=== PATIENT | female | born 1945 | race African-American/Black ===

== ENCOUNTER 2021-11-07 07:51 | Day surgery (SDC) | payer OTHER, BC ==
[~2021-11-07] VITALS: Ht 167.6 cm; Wt 76.2 kg
[2021-11-07] MEDS ORDERED: ARTICAINE HCL/EPINEPHRINE 4%/1:200,000 BIT 1.7 ML CARTRIDGE IJ ONE (08:00)
[2021-11-07] MEDS ORDERED: BENZOCAINE 20% GEL 32 GM BOTTLE MM ONE (08:00)
[2021-11-07] MEDS ORDERED: NS IRRIG SOLN 1000 ML IR ONE (08:00)
[2021-11-07] MEDS ORDERED: NS 250 ML IV.SOLN IV ONE (08:00)
[2021-11-07 11:20] VITALS: BP_SYST 147
== END 2021-11-07 11:30 | disposition home or self-care (01) ==
LOC: SDS 07:51
PROVIDERS: ATTEND Dentist General Practice
DX: M27.2 Inflammatory conditions of jaws (principal); K05.6 Periodontal disease, unspecified; I10 Essential (primary) hypertension; J45.909 Unspecified asthma, uncomplicated; M47.816 Spondylosis without myelopathy or radiculopathy, lumbar region; G89.29 Other chronic pain; G58.8 Other specified mononeuropathies; Z90.49 Acquired absence of other specified parts of digestive tract; Z98.51 Tubal ligation status; Z79.899 Other long term (current) drug therapy; Z20.822 Contact with and (suspected) exposure to COVID-19
CPT/HCPCS: 21025; 21210; 21248; 36415; 70140; 87426; C1713 ×2; J7050

== ENCOUNTER 2021-12-26 10:18 | Day surgery (SDC) | payer OTHER, BC ==
[~2021-12-26] VITALS: Ht 167.6 cm; Wt 80.3 kg
[2021-12-26] MEDS ORDERED: NS 100 ML BAG ONE (12:00)
[2021-12-26] MEDS ORDERED: ARTICAINE HCL/EPINEPHRINE 4%/1:200,000 BIT 1.7 ML CARTRIDGE IJ ONE (12:00)
[2021-12-26] MEDS ORDERED: NS IRRIG SOLN 1000 ML IR ONE (12:00)
[2021-12-26] MEDS ORDERED: BENZOCAINE 20% GEL 32 GM BOTTLE MM ONE (12:00)
[2021-12-26 15:24] VITALS: BP_SYST 148
== END 2021-12-26 14:25 | disposition home or self-care (01) ==
LOC: SDS 10:18 → SMU 10:23 → SDS 14:25
PROVIDERS: ATTEND Dentist General Practice
DX: M27.2 Inflammatory conditions of jaws (principal); M89.8X0 Other specified disorders of bone, multiple sites; M26.603 Bilateral temporomandibular joint disorder, unspecified; K05.223 Aggressive periodontitis, generalized, severe; K08.421 Partial loss of teeth due to periodontal diseases, class I; J45.909 Unspecified asthma, uncomplicated; G62.9 Polyneuropathy, unspecified; I10 Essential (primary) hypertension; G89.29 Other chronic pain; Z90.49 Acquired absence of other specified parts of digestive tract; M47.816 Spondylosis without myelopathy or radiculopathy, lumbar region; M06.9 Rheumatoid arthritis, unspecified; Z88.0 Allergy status to penicillin; Z88.1 Allergy status to other antibiotic agents; Z79.899 Other long term (current) drug therapy
CPT/HCPCS: 21025; 21215; 21248; 36415; 70140; 87426; C1713

== ENCOUNTER 2022-01-02 09:00 | Day surgery (SDC) | payer OTHER, BC ==
[~2022-01-02] VITALS: Ht 167.6 cm; Wt 78.5 kg
[2022-01-02] MEDS ORDERED: NS IRRIG SOLN 1000 ML IR ONE (10:00)
[2022-01-02] MEDS ORDERED: BENZOCAINE 20% GEL 32 GM BOTTLE MM ONE (10:00)
[2022-01-02] MEDS ORDERED: ARTICAINE HCL/EPINEPHRINE 4%/1:200,000 BIT 1.7 ML CARTRIDGE IJ ONE (10:00)
[2022-01-02 14:58] VITALS: BP_SYST 149
== END 2022-01-02 14:00 | disposition home or self-care (01) ==
LOC: SDS 09:00 → SMU 10:54 → SDS 14:00
PROVIDERS: ATTEND Dentist General Practice
DX: M27.2 Inflammatory conditions of jaws (principal); K05.6 Periodontal disease, unspecified; M51.9 Unspecified thoracic, thoracolumbar and lumbosacral intervertebral disc disorder; J45.909 Unspecified asthma, uncomplicated; I10 Essential (primary) hypertension; G89.29 Other chronic pain; G62.9 Polyneuropathy, unspecified; Z90.49 Acquired absence of other specified parts of digestive tract; Z79.899 Other long term (current) drug therapy; Z20.822 Contact with and (suspected) exposure to COVID-19
CPT/HCPCS: 21026; 21210; 21248; 36415; 70140; 87426; C1713

== ENCOUNTER 2022-02-11 18:51 | Inpatient (IN) | payer OTHER, BC ==
[~2022-02-11] VITALS: Ht 167.6 cm; Wt 77.1 kg
[2022-02-11 19:18] VITALS: BP_SYST 161
[2022-02-11 20:57] LABS: BASOPHILS # (AUTO) 0.1 K/uL (0.0-0.2); BASOPHILS % (AUTO) 0.8 % (0.0-2.0); EOSINOPHILS # (AUTO) 0.1 K/uL (0.0-0.4); EOSINOPHILS % (AUTO) 1.1 % (0.0-4.0); HEMATOCRIT 36.7 % (36-48); HEMOGLOBIN 12.7 g/dL (12.0-16.0); LYMPHOCYTES # (AUTO) 1.8 K/uL (1.0-5.5); LYMPHOCYTES % (AUTO) 16.5 % (20.5-51.5); MEAN CORPUSCULAR HEMOGLOBIN 32 pg (27-31); MEAN CORPUSCULAR HGB CONC 35 % (32-36); MEAN CORPUSCULAR VOLUME 94 fL (79.0-98.0); MONOCYTES # (AUTO) 0.7 K/uL (0.0-1.0); MONOCYTES % (AUTO) 6.9 % (1.7-9.3); NEUTROPHILS % (AUTO) 74.7 % (40.0-70.0); PLATELET COUNT (AUTO) 321 K/uL (130-430); RED BLOOD CELL COUNT(AUTO) 3.92 MIL/uL (4.2-6.2); RED CELL DISTRIBUTION WIDTH 13.3 % (9.0-15.0); WHITE BLOOD COUNT (AUTO) 10.7 K/uL (4.8-10.8)
[2022-02-11] MEDS ORDERED: ONDANSETRON HCL 4 MG/2 ML VIAL IVP ONE (21:15)
[2022-02-11] MEDS ORDERED: MORPHINE 4 MG INJ. 4 MG/ML VIAL IVP ONE (21:15)
[2022-02-11 21:50] LABS: ANION GAP 10 (5-15); CALCIUM 9.4 mg/dL (8.4-11.0); CHLORIDE 104 mmol/L (98-107); CREATININE 0.89 mg/dL (0.55-1.30); GLUCOSE 103 mg/dL (70-99); POTASSIUM 3.4 mmol/L (3.5-5.1); SODIUM SERUM 141 mmol/L (136-145); UREA NITROGEN, BLOOD 18 mg/dL (8-21)
[2022-02-11 22:00] LABS: BILIRUBIN,URINE NEGATIVE (NEGATIVE); BLOOD, URINE NEGATIVE (NEGATIVE); COLOR,URINE YELLOW (YELLOW); GLUCOSE,URINE NEGATIVE (NEGATIVE); KETONES,URINE TRACE (NEGATIVE); LEUKOCYTE ESTERASE ,URINE 2+ (NEGATIVE); NITRITE, URINE NEGATIVE (NEGATIVE); PROTEIN URINE 1+ (NEGATIVE); UROBILINOGEN,URINE 0.2 (0.2-1.0)
[2022-02-11 22:05] LABS: ALANINE AMINOTRANSFERASE 18 U/L (12-78); ALBUMIN 3.4 g/dL (3.4-4.8); ASPARTATE AMINOTRANSFERASE 14 U/L (10-37); LIPASE 63 U/L (73-393); TOTAL BILIRUBIN 0.3 mg/dL (0.0-1.0)
[2022-02-11 22:15] LABS: CLARITY/URINE HAZY (CLEAR)
[2022-02-11 23:54] LABS: BACTERIA,URINE FEW /HPF (None Seen); MUCUS,URINE 1+ /LPF (None Seen); RBC,URINE NONE SEEN /HPF (0-3); WBC,URINE 20-50 /HPF (0-3)
[2022-02-12] MEDS ORDERED: cefTRIAXone 1 GM VIAL IM ONE (01:00)
[2022-02-12] MEDS ORDERED: LIDOCAINE 1%, 20 ML MDV 20 ML ONE (01:03)
[2022-02-12] MEDS ORDERED: KETOROLAC TROMETHAMINE 30 MG VIAL IVP ONE (01:15)
[2022-02-12] MEDS ORDERED: ONDANSETRON HCL 4 MG/2 ML VIAL IVP PRN (01:30)
[2022-02-12] MEDS ORDERED: MORPHINE 2 MG/ML INJ. SYRINGE IVP PRN (01:30)
[2022-02-12 04:00] VITALS: BP_SYST 132
[2022-02-12 05:00] VITALS: BP_SYST 130
[2022-02-12 06:00] VITALS: BP_SYST 135
[2022-02-12 11:41] VITALS: BP_SYST 149
[2022-02-12] MEDS ORDERED: NALOXONE HCL 0.4 MG/ML AMP (NARCAN) IVP PRN (11:45)
[2022-02-12] MEDS ORDERED: DIPHENHYDRAMINE INJ 50 MG/ML VIAL IVP PRN (11:45)
[2022-02-12] MEDS: HYDROmorphone 1 MG/ML INJ. CARTRIDGE IVP PRN ×2 (12:06→19:03)
[2022-02-12 16:21] VITALS: BP_SYST 143
[2022-02-12 20:15] VITALS: BP_SYST 144
[2022-02-12] MEDS ORDERED: cefTRIAXone 1 GM IVPB PREMIX 50 ML IV SCH (22:00)
[2022-02-12] MEDS ORDERED: cefTRIAXone 1 GM VIAL ONE (22:44)
[2022-02-13 00:05] VITALS: BP_SYST 148
[2022-02-13] MEDS: HYDROmorphone 1 MG/ML INJ. CARTRIDGE IVP PRN ×2 (08:13→15:16)
[2022-02-13 08:14] VITALS: BP_SYST 159
[2022-02-13 17:06] VITALS: BP_SYST 148
[2022-02-13 17:13] VITALS: BP_SYST 148
[2022-02-13] MEDS ORDERED: cefTRIAXone 1 GM IVPB PREMIX 50 ML IV SCH (21:00)
== END 2022-02-13 21:07 | disposition home or self-care (01) | DRG 690 ==
LOC: SED 18:51 → SMU 02-12 01:27
PROVIDERS: ADMIT Family Medicine; ATTEND Family Medicine
DX: N39.0 Urinary tract infection, site not specified (principal); K59.00 Constipation, unspecified; I10 Essential (primary) hypertension; E78.5 Hyperlipidemia, unspecified; G89.29 Other chronic pain; M54.50 Low back pain, unspecified; Z20.822 Contact with and (suspected) exposure to COVID-19; M47.9 Spondylosis, unspecified; Z68.27 Body mass index [BMI] 27.0-27.9, adult; Z63.4 Disappearance and death of family member; Z80.49 Family history of malignant neoplasm of other genital organs; Z90.49 Acquired absence of other specified parts of digestive tract
CPT/HCPCS: 36415; 76376; 76856-TC; 80053; 81000; 83605; 83690; 85025; 87081; 87086; 96372; 96374; 96375; 99285; J0696; J1170; J1885; J2001; J2270; J2405

== ENCOUNTER 2024-04-08 16:30 | Inpatient (IN) | payer OTHER ==
[~2024-04-08] VITALS: Ht 167.6 cm; Wt 81.6 kg
[2024-04-08 17:05] VITALS: BP_SYST 160; PULSE 94; RESP 18; TEMP 97.8; O2SAT 99
[2024-04-08] MEDS: MORPHINE 4 MG INJ. 4 MG/ML VIAL IM ONE (18:01)
[2024-04-08] MEDS: ONDANSETRON HCL 4 MG/2 ML VIAL IVP ONE (18:18)
[2024-04-08] MEDS: MORPHINE 2 MG/ML INJ. SYRINGE IVP ONE (18:19)
[2024-04-08] MEDS: MORPHINE 4 MG INJ. 4 MG/ML VIAL IVP ONE (18:59)
[2024-04-08 19:24] LABS: BASOPHILS # (AUTO) 0.1 K/uL (0.0-0.2); BASOPHILS % (AUTO) 0.7 % (0.0-2.0); EOSINOPHILS # (AUTO) 0.1 K/uL (0.0-0.4); EOSINOPHILS % (AUTO) 0.7 % (0.0-4.0); HEMOGLOBIN 12.1 g/dL (12.0-16.0); MEAN CORPUSCULAR HEMOGLOBIN 32 pg (27-31); MEAN CORPUSCULAR HGB CONC 34 % (32-36); MEAN CORPUSCULAR VOLUME 96 fL (79.0-98.0); MONOCYTES # (AUTO) 1.3 K/uL (0.0-1.0); MONOCYTES % (AUTO) 11.1 % (1.7-9.3); NEUTROPHILS # (AUTO) 7.8 K/uL (1.8-7.7); NEUTROPHILS % (AUTO) 69.5 % (40.0-70.0); PLATELET COUNT (AUTO) 374 K/uL (130-430); RED BLOOD CELL COUNT(AUTO) 3.77 MIL/uL (4.2-6.2); RED CELL DISTRIBUTION WIDTH 13.3 % (9.0-15.0); WHITE BLOOD COUNT (AUTO) 11.3 K/uL (4.8-10.8)
[2024-04-08 19:37] LABS: INR 0.9 (0.8-1.2); PROTHROMBIN TIME 9.9 SECS (9.5-12.5)
[2024-04-08 19:44] LABS: ALANINE AMINOTRANSFERASE 25 U/L (12-78); ALBUMIN 3.5 g/dL (3.4-4.8); ANION GAP 10 (5-15); ASPARTATE AMINOTRANSFERASE 19 U/L (10-37); CALCIUM 9.4 mg/dL (8.4-11.0); CARBON DIOXIDE 26 mmol/L (23-29); CHLORIDE 104 mmol/L (98-107); CREATININE 0.86 mg/dL (0.55-1.30); GLUCOSE 95 mg/dL (74-106); POTASSIUM 3.6 mmol/L (3.5-5.1); SODIUM SERUM 140 mmol/L (136-145); TOTAL BILIRUBIN 0.5 mg/dL (0.0-1.0); TOTAL PROTEIN, SERUM 7.5 g/dL (6.4-8.3); UREA NITROGEN, BLOOD 12 mg/dL (8-21)
[2024-04-08 19:46] LABS: BILIRUBIN,URINE NEGATIVE (NEGATIVE); BLOOD, URINE NEGATIVE (NEGATIVE); CLARITY/URINE CLEAR (CLEAR); COLOR,URINE YELLOW (YELLOW); GLUCOSE,URINE NEGATIVE (NEGATIVE); KETONES,URINE NEGATIVE (NEGATIVE); LEUKOCYTE ESTERASE ,URINE 2+ (NEGATIVE); NITRITE, URINE NEGATIVE (NEGATIVE); PH,URINE 7.5 (5.0-8.0); PROTEIN URINE NEGATIVE (NEGATIVE); UROBILINOGEN,URINE 0.2 (0.2-1.0)
[2024-04-08 19:51] LABS: AMYLASE 52 U/L (0-100); BILIRUBIN,DIRECT 0.1 mg/dL (0.0-0.3); LIPASE 22 U/L (16-77)
[2024-04-08 19:52] LABS: BACTERIA,URINE FEW /HPF (None Seen); MUCUS,URINE None Seen /LPF (None Seen); RBC,URINE 0-3 /HPF (0-3)
[2024-04-08] MEDS: HYDROcodone/ACETAMIN 10-325 MG TAB PO ONE (20:40)
[2024-04-08 21:43] VITALS: BP_SYST 108; PULSE 74; RESP 18; TEMP 98.2
[2024-04-08 21:55] VITALS: O2SAT 96
[2024-04-08] MEDS: methocarbamoL 500 MG TABLET PO SCH (22:00)
[2024-04-08] MEDS ORDERED: ONDANSETRON HCL 4 MG/2 ML VIAL IVP PRN (22:00)
[2024-04-08] MEDS ORDERED: KETOROLAC TROMETHAMINE 15 MG VIAL IVP PRN (22:00)
[2024-04-08] MEDS ORDERED: ACETAMINOPHEN 325 MG TABLET PO PRN ×2 (22:00)
[2024-04-08] MEDS ORDERED: NALOXONE HCL 0.4 MG/ML AMP (NARCAN) IVP PRN (22:15)
[2024-04-08] MEDS: MORPHINE 4 MG INJ. 4 MG/ML VIAL IVP PRN (22:17)
[2024-04-08] MEDS: ZOLPIDEM TARTRATE 5 MG TABLET PO PRN (22:17)
[2024-04-08] MEDS ORDERED: LORA-258 PO (22:51)
[2024-04-08] MEDS ORDERED: NEU100 PO (22:51)
[2024-04-08] MEDS ORDERED: OXYIR5 PO (22:51)
[2024-04-08] MEDS: levoFLOXacin 500 MG TABLET PO ONE (23:30)
[2024-04-08] MEDS: cefTRIAXone 1 GM in D5W 50 ML IV SCH (23:30)
[2024-04-09 00:35] VITALS: BP_SYST 110; PULSE 78; RESP 20; TEMP 98; O2SAT 98
[2024-04-09 04:14] VITALS: BP_SYST 122; PULSE 78; RESP 16; TEMP 97.6; O2SAT 96
[2024-04-09 06:28] LABS: BASOPHILS # (AUTO) 0.1 K/uL (0.0-0.2); BASOPHILS % (AUTO) 1.1 % (0.0-2.0); EOSINOPHILS # (AUTO) 0.1 K/uL (0.0-0.4); EOSINOPHILS % (AUTO) 0.9 % (0.0-4.0); HEMATOCRIT 34.6 % (36-48); HEMOGLOBIN 11.6 g/dL (12.0-16.0); LYMPHOCYTES # (AUTO) 2.1 K/uL (1.0-5.5); LYMPHOCYTES % (AUTO) 21.4 % (20.5-51.5); MEAN CORPUSCULAR HEMOGLOBIN 32 pg (27-31); MEAN CORPUSCULAR HGB CONC 34 % (32-36); MEAN CORPUSCULAR VOLUME 96 fL (79.0-98.0); MONOCYTES % (AUTO) 9.9 % (1.7-9.3); NEUTROPHILS # (AUTO) 6.6 K/uL (1.8-7.7); NEUTROPHILS % (AUTO) 66.7 % (40.0-70.0); PLATELET COUNT (AUTO) 363 K/uL (130-430); RED CELL DISTRIBUTION WIDTH 13.5 % (9.0-15.0); WHITE BLOOD COUNT (AUTO) 9.8 K/uL (4.8-10.8)
[2024-04-09 06:56] LABS: ALANINE AMINOTRANSFERASE 22 U/L (12-78); ALBUMIN 3.1 g/dL (3.4-4.8); ANION GAP 7 (5-15); ASPARTATE AMINOTRANSFERASE 16 U/L (10-37); CALCIUM 9.2 mg/dL (8.4-11.0); CARBON DIOXIDE 29 mmol/L (23-29); CHLORIDE 106 mmol/L (98-107); CREATININE 0.73 mg/dL (0.55-1.30); GLUCOSE 98 mg/dL (74-106); POTASSIUM 4.2 mmol/L (3.5-5.1); SODIUM SERUM 142 mmol/L (136-145); TOTAL BILIRUBIN 0.5 mg/dL (0.0-1.0); TOTAL PROTEIN, SERUM 7.1 g/dL (6.4-8.3); UREA NITROGEN, BLOOD 13 mg/dL (8-21)
[2024-04-09 07:26] LABS: ERYTHROCYTE SEDIMENTATION RATE 50 MM/HR (0-20)
[2024-04-09 08:05] VITALS: BP_SYST 125; PULSE 74; RESP 18; TEMP 97.5; O2SAT 100
[2024-04-09 16:00] VITALS: BP_SYST 144; PULSE 77; RESP 18; TEMP 98.5; O2SAT 98
[2024-04-09 20:04] VITALS: BP_SYST 146; PULSE 78; RESP 20; TEMP 98.1; O2SAT 97
[2024-04-09 20:21] VITALS: O2SAT 97
[2024-04-09] MEDS: oxyCODONE HCL 5 MG TABLET PO PRN (23:48)
[2024-04-10] VITALS: BP_SYST 160; PULSE 81; RESP 18; TEMP 97.7; O2SAT 100
[2024-04-10 08:00] VITALS: BP_SYST 169; PULSE 78; RESP 20; TEMP 98.2; O2SAT 97
[2024-04-10] MEDS ORDERED: cloNIDine HCL 0.2 MG TABLET PO PRN (08:45)
[2024-04-10 11:10] VITALS: BP_SYST 154; PULSE 90; RESP 16; TEMP 97.9; O2SAT 99
[2024-04-10] MEDS ORDERED: LORazepam 1 MG TABLET PO PRN (15:45)
[2024-04-10] MEDS ORDERED: oxyCODONE HCL 5 MG TABLET PO PRN (15:45)
[2024-04-10 16:12] VITALS: BP_SYST 141; PULSE 89; RESP 18; TEMP 97.7; O2SAT 98
[2024-04-10] MEDS ORDERED: CIPR500T5 PO (16:18)
[2024-04-10] MEDS: GABAPENTIN 300 MG CAPSULE PO ONE (17:00)
[2024-04-10] MEDS: cefTRIAXone 1 GM in D5W 50 ML IV ONE (17:11)
[2024-04-10 17:32] VITALS: BP_SYST 141; PULSE 89; RESP 18; TEMP 97.7; O2SAT 98
[2024-04-10] MEDS ORDERED: GABAPENTIN 300 MG CAPSULE PO SCH (21:00)
== END 2024-04-10 18:00 | disposition home or self-care (01) | DRG 552 ==
LOC: SED 16:30 → SMU 19:58
PROVIDERS: ADMIT Internal Medicine; ATTEND Internal Medicine
DX: M54.42 Lumbago with sciatica, left side (principal); N39.0 Urinary tract infection, site not specified; I10 Essential (primary) hypertension; G89.4 Chronic pain syndrome; E66.9 Obesity, unspecified; Z79.899 Other long term (current) drug therapy; Z88.8 Allergy status to other drugs, medicaments and biological substances; Z68.29 Body mass index [BMI] 29.0-29.9, adult
CPT/HCPCS: 36415; 71045; 80048; 80053; 80076; 81000; 81001; 81015; 82150; 83605; 83690; 85025; 85610; 85651; 85730; 87086; 93005; 96375; 97116-GP; 97530-GP; 99285; J0696; J2270; J2405; J7060